=== PATIENT | female | born 1990 | race Hispanic/Latino ===

== ENCOUNTER 2017-01-05 12:23 | Emergency (ER) | payer OTHER ==
[~2017-01-05] VITALS: Ht 175.3 cm; Wt 67.1 kg
[~2017-01-05 12:23] MED LIST: AUGMENTIN 500M500 MG PO; CYCLOBENZAPRINE10 M1 PO; IBUPROFEN800 M1 PO; VICODIN 5-3001 EACH PO; ZOFRAN ODT4 M1 SL; ZOFRAN ODT4 MG PO
--- NOTE | 2017-01-05 13:16 | ED GENERAL ADULT ---
History of Present Illness General Chief Complaint: Nausea, Vomiting, Diarrhea Stated Complaint: PER PT VOMITING X 1WK Source: patient, family Exam Limitations: no limitations Vital Signs & Intake/Output Vital Signs & Intake/Output Vital Signs Date Time Temp Pulse Resp B/P Pulse O2 O2 Flow FiO2 Ox Delivery Rate 01/05 1705 97.3 99 18 108/62 100 Room Air 01/05 1353 Room Air 01/05 1347 97.0 92 20 110/80 96 Room Air 01/05 1239 97.4 114 18 122/87 97 Room Air Room Air Allergies Coded Allergies: NO KNOWN ALLERGIES (07/22/16) Reconcile Medications Ibuprofen 600 MG TABLET 1 TAB PO TID headache with food Ondansetron (Zofran Odt) 4 MG TAB.RAPDIS 1 TAB SL TID nausea Triage Note: TRIAGe: 26 Y/O FEMALE PRESENTS C/O NAUSEA AND VOMITING X1 WEEK. DENIES DIARRHEA. AFEBRILE IN TRIAGE. Triage Nurses Notes Reviewed? yes : No Patient currently breastfeeds: No HPI: This is 26-year-old female with no past medical conditions who comes in for chief complaint of vomiting. Patient states that she's been vomiting for the past 5 days. Initially started on S2 to 3 times a day, however it's been worsening. Today patient had up to 7 or 8% of emesis. She states that it is worse with eating. She denies any exotic food ingestions, travel, sick contacts , or use of recreational drugs. She denies any fever, shortness of breath, chest pain, but does endorse nausea, vomiting, and now a headache. Patient denies alcohol consumption smoking, but does endorse occasional use of cannabis. However she denies any recent use of cannabis. She does endorse that it is possibility that she could be . (SHADI SALAS,[facility]) Past History Travel History Traveled to [place] past 21 day No Medical History Any Pertinent Medical History? 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 No (JACQUE HSU MD) Review of Systems Review of Systems Constitutional: Reports: weakness. Denies: chills, diaphoresis, fever, malaise. EENTM: Denies: blurred vision, double vision, visual changes, hearing changes. Respiratory: Denies: cough, short of breath, stridor, wheezing. Cardiovascular: Denies: chest pain, palpitations, syncope. GI: Reports: nausea, vomiting. Denies: abdominal pain, bloating, constipation, diarrhea, distention, melena, changes in stool. Genitourinary: Reports: no symptoms. Musculoskeletal: Reports: no symptoms. Skin: Reports: no symptoms. (JACQUE HSU MD) Review of Systems Neurological/Psychological: Reports: see HPI, headache. Hematologic/Endocrine: Reports: no symptoms. Immunologic/Allergic: Reports: no symptoms. All Other Systems: Reviewed and Negative (KARLO MCCLELLAND MD) Physical Exam Physical Exam General Appearance: well developed/nourished, no apparent distress, alert, awake , anxious Head: atraumatic, normal appearance Eyes: Bilateral: normal appearance, PERRL, EOMI. Ears, Nose, Throat: normal pharynx, normal ENT inspection, mucous membranes dry Neck: normal inspection, supple, full range of motion Respiratory: normal breath sounds, chest non-tender, hyperdynamic heart sounds Cardiovascular: regular rate/rhythm, tachycardia Gastrointestinal: soft, patient has hyperactive bowel sounds. No tenderness in any quadrant. No rebound, no guarding. No evidence of hepatomegaly Back: no vertebral tenderness Extremities: normal inspection Core Measures ACS in differential dx? 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 Skin: intact, normal color, warm/dry Lymphatic: no anterior cervical yaz (KARLO MCCLELLAND MD) Progress Differential Diagnoses I considered the following diagnoses in my evaluation of the patient: [ Gastroenteritis, , norovirus, food ingestion] Initial ED EKG: none (JACQUE HSU MD) Differential Diagnoses I considered the following diagnoses in my evaluation of the patient: Plan of Care: Orders Procedure Date/time Status HUMAN BETA HCG SCREEN 01/05 130 Complete COMPREHENSIVE METABOLIC PANEL 01/05 130 Complete CBC WITHOUT DIFFERENTIAL 01/05 130 Complete Laboratory Tests 01/05/17 1338: Anion Gap 13, Estimated GFR > 60, BUN/Creatinine Ratio 16.7, Glucose 76, Calcium 10.1, Total Bilirubin 1.0, AST 18, ALT 25, Alkaline Phosphatase 73, Total Protein 8.1, Albumin 4.7, Globulin 3.4, Albumin/Globulin Ratio 1.4, Total Beta HCG NEGATIVE, CBC w Diff NO MAN DIFF REQ, RBC 4.39, MCV 92.9, MCH 31.7 H, RDW 12.8, MPV 9.2, Gran % 76.9 H, Lymphocytes % 16.8 L, Monocytes % 5.5, Eosinophils % 0.1, Basophils % 0.7, Absolute Granulocytes 4.9, Absolute Lymphocytes 1.1 L, Absolute Monocytes 0.4, Absolute Eosinophils 0, Absolute Basophils 0, PUBS MCHC 34.1 Patient had severe nausea and vomiting. We did CBC, CMP, tests, and workup was negative. Patient received 2 L of normal saline bolus, etc. milligram of Vicoprofen, IV Zofran and subsequently felt better. She is currently stable, feeling better with no more episodes of emesis and ready to be discharged home. (JACQUE HSU MD) Departure Departure Time of Disposition: 1652 Disposition: HOME OR SELF CARE Condition: Stable Clinical Impression Primary Impression: Nausea & vomiting Referrals: PATIENT HAS NO PRIMARY CARE DR (PCP/Family) Departure Forms: Customer Survey General Discharge Information Prescriptions: Current Visit Scripts Ondansetron (Zofran Odt) 1 TAB SL TID #15 TAB Ibuprofen 1 TAB PO TID 5 Days with food (JACQUE HSU MD) Resident Co-Sign Statement Statement: ED Attending supervision documentation- x I saw and evaluated the patient. I have also reviewed all the pertinent lab results and diagnostic results. I agree with the findings and the plan of care as documented in the Resident's documentation. [] I have reviewed the ED Record and agree with the Resident's documentation. [] Additions or exceptions (if any) to the Resident's note and plan are summarized below: [] (STAS SALAS,KARLO) Critical Care Note Critical Care Note Critical Care Time: non-applicable (SHADI SALAS,JACQUE)
[2017-01-05 13:51] LABS: ABSOLUTE BASOPHIL COUNT 0 /CUMM (0.0-0.2); ABSOLUTE EOSINOPHIL COUNT 0 /CUMM (0.0-0.7); ABSOLUTE GRANULOCYTE CT 4.9 /CUMM (1.4-6.5); ABSOLUTE LYMPH COUNT 1.1 /CUMM (1.2-3.4); ABSOLUTE MONOCYTE COUNT 0.4 /CUMM (0.10-0.60); BASOPHIL % 0.7 % (0.0-2.0); EOSINOPHIL % 0.1 % (0-5); GRANULOCYTE % 76.9 % (42.2-75.2); HEMATOCRIT 40.8 % (37-47); MEAN CORPUSCULAR HGB 31.7 PG (27.0-31.0); MEAN CORPUSCULAR HGB CONC 34.1 G/DL (33.0-37.0); MEAN CORPUSCULAR VOLUME 92.9 FL (81.0-99.0); MEAN PLATELET VOLUME 9.2 FL (7.4-10.4); PLATELET COUNT 268 /CUMM (130-400); RBC DISTRIBUTION WIDTH 12.8 % (11.5-14.5); RED BLOOD CELL CT 4.39 /CUMM (4.20-5.40); WHITE BLOOD CELL COUNT 6.4 /CUMM (4.8-10.8)
[2017-01-05] MEDS ORDERED: ZOFRAN ODT4 M1 SL (16:52)
[2017-01-05] MEDS ORDERED: IBUPROFEN600 M1 PO (16:52)
[2017-01-05 17:05] VITALS: BP 108/62
== END 2017-01-05 17:38 ==
LOC: ERH 12:23
PROVIDERS: Student in an Organized Health Care Education/Training Program
DX: R11.2 Nausea with vomiting, unspecified (principal)
CPT/HCPCS: 96374; 96375; J2405

== ENCOUNTER 2017-11-04 13:01 | Emergency (ER) | payer OTHER ==
[~2017-11-04] VITALS: Ht 175.3 cm; Wt 65.8 kg
[~2017-11-04 13:01] MED LIST changes: +FIORICET 50-301 EACH PO; +GUAIFEN-CODEIN118 M1 PO; +IBUPROFEN600 M1 PO; +PROAIR HFA8.5 GM INH; +ZITHROMAX250 M2 PO
--- NOTE | 2017-11-04 15:03 | ED GI/GU/ABDOMINAL COMPLAINT ---
History of Present Illness General Chief Complaint: Nausea, Vomiting, Diarrhea Stated Complaint: NVD X 2DAYS Source: patient Exam Limitations: no limitations Vital Signs & Intake/Output Vital Signs & Intake/Output Vital Signs Date Time Temp Pulse Resp B/P B/P Pulse O2 O2 Flow FiO2 Mean Ox Delivery Rate 11/04 1813 98.1 82 16 124/78 99 Room Air 11/04 1717 97.3 104 18 128/59 96 Room Air 11/04 1304 98.0 134 18 116/85 97 Room Air Room Air Allergies Coded Allergies: NO KNOWN ALLERGIES (07/22/16) Reconcile Medications Albuterol Sulfate (Proair Hfa) 90 MCG HFA.AER.AD 2 PUF INH Q4-6 PRN PRN dyspnea Azithromycin (Zithromax) 250 MG TABLET 1 DP PO AD bronchitis 2 the first day followed by 1 for days 2-5 Codeine Phosphate/Guaifenesi (Guaifen-Codeine 100-10 MG/5 Ml) 10 MG-100 MG/5 ML LIQUID 10 ML PO Q6HR PRN COUGH Hyoscyamine (Levsin) 0.125 MG TABLET 1 TAB PO Q4 PRN ABDOMINAL SPASMS Ondansetron (Zofran Odt) 4 MG TAB.RAPDIS 1 TAB SL TID PRN NAUSEA Triage Note: TRIAGE: 27 Y/O FEMALE PRESENTS C/O WIDESPREAD BODY ACHES X 2 DAYS. AFEBRILE IN TRIAGE. FLU SWAB SENT AT THIS TIME. Triage Nurses Notes Reviewed? yes ? N Is pt currently ? No Onset: Gradual Duration: day(s): (2) Timing: remote history Quality/Severity: cramping Severity Numbers: 7 Location: generalized abdomen Radiation: no radiation Activities at Onset: none Prior Abdominal Problems: similar symptoms Past Sexual History: Unobtainable at this time HPI: Patient is a 27-year-old female with no past medical history presenting to the emergency department complaining of nausea vomiting has been going on for the past 2 days. Denies diarrhea. No fevers but has had chills. Other malaise. Has not been able to keep anything down for the past 2 days. No sick contacts or recent travel. No recent antibiotic use. Denies any blood in the emesis. Unsure vomiting times she has vomited (Sasha BYRNES,Niesha) Past History Travel History Traveled to [place] past 21 day No Medical History Any Pertinent Medical History? 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 No (Niesha Keating) Review of Systems Review of Systems Constitutional: Reports: chills, malaise. Comments Review of systems: See HPI, All other systems negative. Constitutional, no chills fever or weight loss HEENT: No visual changes no sore throat no congestion Cardiovascular: No chest pain , no palpitations Skin, no jaundice no rashes Respiratory: No dyspnea cough sputum or hemoptysis GI: No diarrhea : No dysuria No hematuria Muscle skeletal: no back pain, no neck pain, Neurologic: No numbness no confusion Psych: No stress anxiety Immunology: No splenectomy or history of AIDS (Niesha Keating) Physical Exam Physical Exam General Appearance: well developed/nourished, no apparent distress, alert, awake , comfortable Gastrointestinal: normal bowel sounds, soft, non-tender Comments: Well-developed well-nourished person in no acute distress HEENT: Pupils equally round and reactive to light and accommodation. Nose is atraumatic. External auditory canal and Tympanic membranes clear. Pharynx normal. No swelling or edema. Very dry oral mucosa. Dry chapped lips. Neck: Supple, no lymphadenopathy Back: Nontender, no CVA tenderness. Cardiovascular: Regular rate and rhythms no murmurs rubs or gallops, normal JVP Respiratory: Chest nontender. No respiratory distress.breath sounds clear to auscultation bilaterally Abdomen: Soft, nontender nondistended, no appreciable organomegaly. Normal bowel sounds. No ascites, no rebound or guarding. Extremity: No edema Neuro: Alert oriented x3 Skin: No appreciable rash on exposed skin, skin is warm and dry. Psych: Mood and affect is normal, memory and judgment is normal. Core Measures ACS in differential dx? No Sepsis Present: No Sepsis Focused Exam Completed? No (Niesha Keating) Progress Differential Diagnosis: DEHYDRATION, ELECTROLYTE ABNORMALITY, PANCREATITIS, GASTRITIS, PEPTIC ULCER DISEASE Plan of Care: Orders Procedure Date/time Status Regular Diet 11/05 B Active Add-on Test (ER Only) 11/04 181 Active CULTURE,URINE 11/04 174 Active URINE 11/04 1502 Complete URINALYSIS 11/04 1502 Complete LIPASE 11/04 1502 Complete COMPREHENSIVE METABOLIC PANEL 11/04 1502 Complete CBC WITHOUT DIFFERENTIAL 11/04 1502 Complete AMYLASE 11/04 1502 Complete RAPID VIRAL INFLUENZA A 11/04 1305 Complete Laboratory Tests 11/04/17 1740: Urine Color YEL, Urine Clarity HAZY H, Urine pH 6.0, Ur Specific [place] >= 1.030, Urine Protein TRACE H, Urine Ketones 40 H, Urine Nitrite NEG, Urine Bilirubin NEG, Urine Urobilinogen 0.2, Ur Leukocyte Esterase TRACE H, Ur Microscopic SEDIMENT EXAMINED, Urine RBC 1-3, Urine WBC 5-10 H, Ur Epithelial Cells PACKD H, Urine Bacteria MOD H, Urine Mucus MANY H, Urine Hemoglobin TRACE-LYSED, Urine Glucose NEG, Urine Test NEGATIVE 11/04/17 1536: Anion Gap 13, Estimated GFR > 60, BUN/Creatinine Ratio 18.6, Glucose 89, Calcium 10.3 H, Total Bilirubin 1.0, AST 32, ALT 32, Alkaline Phosphatase 93, Total Protein 8.7 H, Albumin 4.9, Globulin 3.8, Albumin/Globulin Ratio 1.3, Amylase 93, Lipase 320 H, CBC w Diff NO MAN DIFF REQ, RBC 4.54, MCV 93.3, MCH 32.0 H, RDW 12.8, MPV 8.9, Gran % 88.4 H, Lymphocytes % 9.0 L, Monocytes % 2.3, Eosinophils % 0, Basophils % 0.3, Absolute Granulocytes 7.0 H, Absolute Lymphocytes 0.7 L, Absolute Monocytes 0.2, Absolute Eosinophils 0, Absolute Basophils 0, PUBS MCHC 34.2 Microbiology 11/04 1739 URINE ROUT: Urine Culture - RECD 11/04 1305 NASOPHARYN: Influenza Virus A & B Rapid Smear - COMP 11/04/2017 3:09:20 PM on arrival patient in no acute distress, afebrile. Patient has no abdominal pain to palpation. We will medicate patient with IV hydration, IV Zofran. Patient also given IV Toradol for discomfort. Likely viral process. We will assess LABS TO RULE OUT pancreatitis. Patient denies drinking alcohol last night. 11/04/2017 6:20:15 PM patient informed of all lab work results. Feeling improved after IV hydration. Tolerating by mouth without vomiting. Patient will follow- up with her primary care physician in the next 1-2 days. Initial ED EKG: none (Niesha Keating) Departure Departure Time of Disposition: 1814 Disposition: HOME OR SELF CARE Condition: Stable Clinical Impression Primary Impression: Vomiting Qualifiers: Vomiting type: unspecified Vomiting Intractability: non-intractable Nausea presence: with nausea Qualified Code: R11.2 - Nausea with vomiting, unspecified Referrals: Patient Has No Primary Care Dr (PCP/Family) Additional Instructions: Follow-up with your primary care physician in the next 1-2 days for reevaluation. Increase fluids. Take [id number] Motrin and Tylenol started for any aches or pains. Take Levsin help with abdominal spasms. Take Zofran as prescribed to help with nausea. Departure Forms: Customer Survey General Discharge Information Prescriptions: Current Visit Scripts Hyoscyamine (Levsin) 1 TAB PO Q4 PRN ABDOMINAL SPASMS #40 TAB Ondansetron (Zofran Odt) 1 TAB SL TID PRN NAUSEA #10 TAB (Niesha Keating) PA/VERTICA ARCHITECT Co-Sign Statement Statement: ED Attending supervision documentation- [] I saw and evaluated the patient. I have also reviewed all the pertinent lab results and diagnostic results. I agree with the findings and the plan of care as documented in the PA's/VERTICA ARCHITECT's documentation. [X] I have reviewed the ED Record and agree with the PA's/VERTICA ARCHITECT's documentation. [] Additions or exceptions (if any) to the PAs/VERTICA ARCHITECT's note and plan are summarized below: [] (Hanna SALAS,Mahendra Eden)
[2017-11-04 15:45] LABS: ABSOLUTE BASOPHIL COUNT 0 /CUMM (0.0-0.2); ABSOLUTE EOSINOPHIL COUNT 0 /CUMM (0.0-0.7); ABSOLUTE LYMPH COUNT 0.7 /CUMM (1.2-3.4); ABSOLUTE MONOCYTE COUNT 0.2 /CUMM (0.10-0.60); BASOPHIL % 0.3 % (0.0-2.0); EOSINOPHIL % 0 % (0-5); HEMATOCRIT 42.4 % (37-47); MEAN CORPUSCULAR HGB CONC 34.2 G/DL (33.0-37.0); MEAN CORPUSCULAR VOLUME 93.3 FL (81.0-99.0); MEAN PLATELET VOLUME 8.9 FL (7.4-10.4); PLATELET COUNT 343 /CUMM (130-400); RBC DISTRIBUTION WIDTH 12.8 % (11.5-14.5); RED BLOOD CELL CT 4.54 /CUMM (4.20-5.40); WHITE BLOOD CELL COUNT 7.9 /CUMM (4.8-10.8)
[2017-11-04 15:59] LABS: GRANULOCYTE % 88.4 % (42.2-75.2)
[2017-11-04 18:13] VITALS: BP 124/78
[2017-11-04] MEDS ORDERED: LEVSIN0.125 M1 PO (18:16)
[2017-11-04] MEDS ORDERED: ZOFRAN ODT4 M1 SL (18:16)
== END 2017-11-04 18:23 ==
LOC: ERH 13:01
PROVIDERS: Physician Assistant
DX: R11.2 Nausea with vomiting, unspecified (principal)
CPT/HCPCS: 81001; 81025; 87086; 87804; 87804-59; 96361; 96374; 96375; J1885; J2405; J2765